=== PATIENT | male | born 1985 | race Two or more races ===

== ENCOUNTER 2025-04-13 11:05 | Emergency (ER) | payer SELFPAY ==
[2025-04-13 12:03] VITALS: BP 136/68; PULSE 86; RESP 18; TEMP 38.2; O2SAT 98; BMI 22.0
--- NOTE | 2025-04-13 12:05 | ED_ITS ---
HPI - URI/Sore Throat General Chief Complaint: Upper Respiratory Symptoms Stated Complaint: fever, sore throat, congestion Time Seen by Provider: 04/13/25 12:06 Source: patient, RN notes reviewed and old records reviewed Mode of arrival: ambulatory History of Present Illness ED Provider: Edith Knox PA-C HPI Narrative: 39-year-old male with no significant past medical history presenting to the ED complaining of fever, sore throat, dry cough and chest discomfort with cough x3 days. Admits daughter's home sick with similar symptoms. Patient requesting work note. States he took a home COVID test which was negative. Denies ear pain, difficulty/inability to swallow, SOB, travel Related Data Allergies Allergy/AdvReac Type Severity Reaction Status Date / Time No Known Allergies Allergy Verified 04/13/25 12:06 Review of Systems Review of Systems: Yes all other systems are reviewed and are negative Constitutional: Constitutional: Reports as per [facility] Past Medical History Attestation statement: The following information was validated with the patient. Source: old records reviewed Physical Exam Vital Signs: Vital Signs: Last Vital Signs Temp 100.8 F H 04/13/25 12:03 Pulse 86 04/13/25 12:03 Resp 18 04/13/25 12:03 BP 136/68 04/13/25 12:03 Pulse Ox 98 04/13/25 12:03 O2 Del Method Room Air 04/13/25 12:03 BMI result Body Mass Index 22.0 Const: General: cooperative, healthy appearing and no acute distress Orientation/consciousness: patient oriented x3 Limitations: no limitations HEENT: Head: Yes normal to inspection and Yes atraumatic Ears: hearing grossly normal bilaterally General nose exam: Normal external nose present Face and sinus: Yes normal facial exam Mouth: Normal oral and palatal mucosa present and no drooling Throat: Yes tonsils normal, Yes uvula midline, No peritonsillar mass, Yes posterior oropharynx abnormal (Slightly erythematous), No uvula laterally displaced and No uvular edema Eyes: General: appearance normal, both eyes and all related structures EOM: EOMs intact bilaterally Neck: Neck: Yes normal visual inspection and Yes no meningeal signs Resp: Effort & Inspection: normal respiratory effort, no respiratory distress and no stridor Auscultation: clear to auscultation bilaterally, no rhonchi and no wheezes Cardio: Rate: regular rate Heart sounds: S1 normal heart sound present and S2 normal heart sound present Skin: Rashes: no rashes Wounds: no wounds Neuro: General: patient oriented x3, tone normal and no meningeal signs Cranial nerves: Yes CN's II-XII intact bilaterally Gait exam (Neuro): Normal gait present Extrem: General: Yes normal to inspection Medical Decision Making Medical Decision Making MDM Narrative: 39-year-old male with no significant past medical history presenting to the ED complaining of fever, sore throat, dry cough and chest discomfort with cough x3 days. On exam low-grade temp 100.8 degrees, NAD/nontoxic appearing, talking in complete sentences, no respiratory distress, lungs CTA, mild posterior oropharyngeal erythema noted. Uvula midline. No tonsillar exudates. Offered COVID/flu/RSV and rapid strep testing. Patient states he does not think any of this is necessary / refused as does not change his management & does not believe he has strep throat. Patient only requesting work note. Discussed at length symptomatic treatment at home and close PCP follow-up. Discussed worrisome signs and symptoms discharged return precautions Please refer to course for remaining clinical decision making, interpretation of labs/imaging results, and discussions with consultants and/or family members. Results discussed with patient including worrisome signs and symptoms and strict return precautions, and when to return to the emergency department. They verbalized understanding and feel safe for discharge at this time. Differential Diagnosis Differential Diagnoses: The differential diagnosis associated with the presentation includes As above External Record Review External record reviewed: Inpatient record, Office record, Outpatient record, Prior outpatient labs, Prior outpatient radiology, Primary care record and Outside ED record Tests considered The following testing was considered but not selected: As above Prescription Management I considered prescription management with: Pain Medication, Antiviral and Antibiotic Chronic Conditions Patient?s care impacted by: Other Social Determinants Patient?s care significantly limited by Social Determinants of Health including: Other Social Determinant of Health Discharge Plan Discharge Clinical Impression: Upper respiratory infection Patient Disposition: Home, Self-Care Instructions: Upper Respiratory Infection (DC) Additional Instructions: You have a virus No antibiotics are indicated at this time Make sure you are staying hydrated. Drink plenty of fluids. Rest Alternate Tylenol and Motrin at home as needed for body aches and fever Follow-up with your doctor. If symptoms persist or worsen return to the emergency department *If you are a child & not tolerating liquid or urinating for more than 6 hours, or fevers are uncontrolled with medications at home, return to the emergency department* Referrals: Physician,None [Primary Care Provider, Medical] - 1 week Stand Alone Forms: Work/School Release Print Language: [place]
[2025-04-13 12:22] VITALS: BP 136/68; PULSE 86; RESP 18; TEMP 38.2; O2SAT 98
== END 2025-04-13 12:22 | disposition home or self-care (01) ==
PROVIDERS: Emergency Provider Emergency Medicine
DX: J06.9 Acute upper respiratory infection, unspecified (principal); R50.9 Fever, unspecified; J02.9 Acute pharyngitis, unspecified; R05.9 Cough, unspecified
CPT/HCPCS: 99282